=== PATIENT | female | born 1995 | race Two or more races ===

== ENCOUNTER 2017-02-11 00:42 | Observation (INO) | payer MEDICAID ==
[~2017-02-11] VITALS: Ht 157.5 cm; Wt 65.3 kg
[2017-02-11] MEDS ORDERED: LACTATED RINGERS 1,000 ML IV SCH (01:30)
[2017-02-11] MEDS ORDERED: TERBUTALINE SULFATE 1MG/ML VIAL SUBCUT PRN (01:45)
[2017-02-11 02:13] LABS: CLARITY URINE CLEAR (CLEAR); COLOR URINE YELLOW (YELLOW); GLUCOSE URINE NEGATIVE (NEGATIVE); KETONES URINE NEGATIVE (NEGATIVE); LEUKOCYTE ESTERASE URINE TRACE (NEGATIVE); NITRITE URINE NEGATIVE (NEGATIVE); OCCULT BLOOD URINE NEGATIVE (NEGATIVE); PROTEIN URINE NEGATIVE (NEGATIVE); SPECIFIC GRAVITY URINE 1.006 (1.005-1.030); UROBILINOGEN URINE 0.2 E.U./dL (0.2-1.0)
[2017-02-11] MEDS ORDERED: LACTATED RINGERS 1,000 ML IV NR (02:30)
[2017-02-11] MEDS ORDERED: PREN1TAB45 PO (03:31)
== END 2017-02-11 04:00 | disposition home or self-care (01) ==
LOC: L&D 00:42
PROVIDERS: ADMIT Obstetrics & Gynecology; ATTEND Obstetrics & Gynecology
DX: O62.9 Abnormality of forces of labor, unspecified (principal); Z3A.30 30 weeks gestation of pregnancy
CPT/HCPCS: 76805; 76818; 81001; 96360; 96361; 96372; 99281; G0378; J3105; J7120